=== PATIENT | male | born 1970 | race Caucasian/White ===

== ENCOUNTER 2017-07-25 19:09 | Emergency (ER) | payer MEDICAID ==
[~2017-07-25] VITALS: Ht 177.8 cm; Wt 86.0 kg
[~2017-07-25 19:09] MED LIST: AZIT500T5 PO; CEFD300C37 PO; GUAI12003 PO; NICO-486 TD; OXYC5TAB3 PO; POLY17PO5 PO
[2017-07-25 19:10] VITALS: BP 133/75
[2017-07-25] MEDS ORDERED: CARBAMIDE PEROXIDE EAR DROPS 6.5%, 15ML ONE (19:50)
[2017-07-25] MEDS ORDERED: CARBAMIDE PEROXIDE EAR DROPS 6.5%, 15ML LEFT EAR ONE (20:00)
[2017-07-25] MEDS ORDERED: CARBAMIDE PEROXIDE EAR DROPS 6.5%, 15ML RIGHT EAR ONE (20:00)
== END 2017-07-25 21:05 | disposition home or self-care (01) ==
LOC: ED 20:15
DX: H61.22 Impacted cerumen, left ear (principal)
CPT/HCPCS: 69209; 99282

== ENCOUNTER 2018-03-27 15:01 | Emergency (ER) | payer MEDICAID ==
[~2018-03-27] VITALS: Ht 175.3 cm; Wt 76.0 kg
[2018-03-27] MEDS ORDERED: ONDANSETRON ODT 4 MG ONE (15:29)
[2018-03-27] MEDS ORDERED: ONDANSETRON ODT 4 MG PO PRN (15:30)
[2018-03-27 15:35] LABS: BASOPHILS # (AUTO) 0.04 x10^3/uL (0-0.1); BASOPHILS % (AUTO) 1 % (0-1); EOSINOPHILS # (AUTO) 0.15 x10^3/uL (0-0.4); EOSINOPHILS % (AUTO) 2 % (1-7); LYMPHOCYTES # (AUTO) 2.79 x10^3/uL (1-3.4); LYMPHOCYTES % (AUTO) 39 % (22-44); MD NO; MEAN CORPUSCULAR HEMOGLOBIN 31.2 pg (27.5-34.5); MEAN CORPUSCULAR HGB CONC 33.1 g/dL (33.2-36.2); MEAN CORPUSCULAR VOLUME 94.2 fL (81-97); MONOCYTES % (AUTO) 13 % (2-9); NEUTROPHILS # (AUTO) 3.22 x10^3/uL (1.8-6.8); NEUTROPHILS % (AUTO) 45 % (42-75); PLATELET COUNT 316 x10^3/uL (130-400); RED BLOOD COUNT 4.39 x10^6/uL (4.38-5.82)
[2018-03-27 15:47] LABS: ALANINE AMINOTRANSFERASE 35 U/L (12-78); ALBUMIN 3.3 g/dL (3.4-5.0); ANION GAP 6 mmol/L (5-15); CALCIUM 7.8 mg/dL (8.5-10.1); CHLORIDE 108 mmol/L (98-107); CREATININE 1.11 mg/dL (0.7-1.3)
[2018-03-27 15:49] LABS: ALKALINE PHOSPHATASE 86 U/L (45-117); BILIRUBIN,TOTAL 0.3 mg/dL (0.2-1.0); TOTAL PROTEIN 6.8 g/dL (6.4-8.2)
[2018-03-27 17:27] VITALS: BP 125/74
== END 2018-03-27 17:30 | disposition home or self-care (01) ==
LOC: ED 15:26
DX: R11.2 Nausea with vomiting, unspecified (principal); R19.7 Diarrhea, unspecified; R10.9 Unspecified abdominal pain
CPT/HCPCS: 36415; 80053; 83690; 85025; 99284; Q0162

== ENCOUNTER 2018-05-09 19:48 | Emergency (ER) | payer MEDICAID ==
[~2018-05-09] VITALS: Ht 175.3 cm; Wt 78.3 kg
[2018-05-09 19:54] VITALS: BP 113/71
== END 2018-05-09 20:47 | disposition home or self-care (01) ==
LOC: ED 20:10
DX: L01.01 Non-bullous impetigo (principal); I10 Essential (primary) hypertension
CPT/HCPCS: 99283

== ENCOUNTER 2019-07-21 04:17 | Emergency (ER) | payer MEDICAID ==
[~2019-07-21] VITALS: Ht 175.3 cm; Wt 82.6 kg
[~2019-07-21 04:17] MED LIST changes: +AZIT500T10 PO; -AZIT500T5 PO
[2019-07-21] MEDS ORDERED: IBUPROFEN 800 MG TABLET ONE (04:40)
[2019-07-21 04:58] VITALS: BP 129/74
[2019-07-21] MEDS ORDERED: IBUPROFEN 800 MG TABLET PO ONE (05:00)
== END 2019-07-21 05:00 | disposition home or self-care (01) ==
LOC: ED 04:45
DX: K08.89 Other specified disorders of teeth and supporting structures (principal); I95.9 Hypotension, unspecified
CPT/HCPCS: 99283

== ENCOUNTER 2020-07-29 16:55 | Emergency (ER) | payer MEDICAID ==
[~2020-07-29] VITALS: Ht 175.3 cm; Wt 83.5 kg
[2020-07-29] MEDS ORDERED: KETOROLAC 30 MG/1 ML ONE (18:06)
[2020-07-29 18:26] VITALS: BP 140/72
[2020-07-29] MEDS ORDERED: KETOROLAC 30 MG/1 ML IM ONE (18:30)
== END 2020-07-29 18:27 | disposition home or self-care (01) ==
LOC: ED 17:59
DX: K02.9 Dental caries, unspecified (principal); K08.89 Other specified disorders of teeth and supporting structures
CPT/HCPCS: 96372; 99283; J1885

== ENCOUNTER 2020-08-22 01:21 | Emergency (ER) | payer MEDICAID ==
[~2020-08-22] VITALS: Ht 175.3 cm; Wt 83.7 kg
[~2020-08-22 01:21] MED LIST changes: -OXYC5TAB3 PO; +OXYC5TAB98 PO
[2020-08-22] MEDS ORDERED: HYDROcodone/APAP 5/325 TABLET PO ONE (02:00)
[2020-08-22] MEDS ORDERED: HYDROcodone/APAP 5/325 TABLET ONE (02:01)
[2020-08-22 02:12] LABS: BASOPHILS % (AUTO) 1 % (0-1); EOSINOPHILS % (AUTO) 2 % (1-7); LYMPHOCYTES % (AUTO) 13 % (22-44); MEAN CORPUSCULAR HEMOGLOBIN 31.5 pg (27.5-34.5); MEAN CORPUSCULAR HGB CONC 33.4 g/dL (33.2-36.2); MONOCYTES % (AUTO) 9 % (2-9); NEUTROPHILS % (AUTO) 75 % (42-75); PLATELET COUNT 390 x10^3/uL (130-400); RED BLOOD COUNT 4.53 x10^6/uL (4.38-5.82)
[2020-08-22 02:14] LABS: MD NO
[2020-08-22 02:20] LABS: ANION GAP 4 mmol/L (5-15); CALCIUM 9.4 mg/dL (8.5-10.1); CHLORIDE 105 mmol/L (98-107); CREATININE 1.21 mg/dL (0.7-1.3)
--- NOTE | 2020-08-22 03:01 | NUR ---
PT RESTING IN BED. PT HAS EQUAL AND UNLABORED BREATHING. PT ON MONITOR WITH PT VSS
--- NOTE | 2020-08-22 03:25 | NUR ---
BREAK RN: PT.CHART UP FOR RECHECK BY ERP AT THIS TIME.
[2020-08-22 04:01] VITALS: BP 112/68
== END 2020-08-22 04:08 | disposition home or self-care (01) ==
LOC: ED 01:51
DX: B37.9 Candidiasis, unspecified (principal); N49.2 Inflammatory disorders of scrotum; I95.9 Hypotension, unspecified; F17.210 Nicotine dependence, cigarettes, uncomplicated
CPT/HCPCS: 36415; 76870; 80048; 85025; 99284; 99406

== ENCOUNTER 2020-09-05 08:15 | Emergency (ER) | payer MEDICAID ==
[~2020-09-05] VITALS: Ht 175.3 cm; Wt 82.7 kg
--- NOTE | 2020-09-05 08:23 | NUR ---
[facility]
[2020-09-05] MEDS ORDERED: SODIUM CHLORIDE FLUSH 10ML SYR IVF ONE (08:30)
[2020-09-05] MEDS ORDERED: ONDANSETRON 2MG/ML, 2ML IVPush ONE (08:30)
[2020-09-05] MEDS ORDERED: MORPHINE SULFATE 4 MG/ML, 1ML IV PRN (08:30)
[2020-09-05] MEDS ORDERED: ONDANSETRON 2MG/ML, 2ML ONE (08:39)
[2020-09-05] MEDS ORDERED: MORPHINE SULFATE 4 MG/ML, 1ML ONE (08:40)
--- NOTE | 2020-09-05 08:46 | NUR ---
PT C/O RASH TO GROIN, HANDS, AND NECK FOR 3 WEEKS. PT STATES HE WAS SEEN IN THE ER AND WAS PRESCRIBED ABX WHICH HE COMPLETED. RASH HAS CONTINUED TO WORSEM. PT STATES RASH DOES ITCH.
--- NOTE | 2020-09-05 09:02 | NUR ---
TASK RN NOTE: PIV PLACED, PT MEDICATED PER EMAR. BP AND SPO2 MONITORS IN PLACE. CALL LIGHT IN REACH. PT A&O, RESPS EVEN AND UNLABORED. PT RATES PAIN AT 10/10 PRIOR TO MORPHINE ADMIN. BLOOD DRAWN WITH PIV START AND SENT TO LAB. AWAITNG US AND LAB RESULTS. PT INSTRUCTED TO PROVIDE CLEAN CATCH UA WHEN ABLE, SUPPLIES AT BEDSIDE. CALL LIGHT IN REACH.
[2020-09-05 09:03] LABS: BASOPHILS % (AUTO) 1 % (0-1); EOSINOPHILS % (AUTO) 7 % (1-7); LYMPHOCYTES % (AUTO) 20 % (22-44); MEAN CORPUSCULAR HEMOGLOBIN 30.9 pg (27.5-34.5); MEAN CORPUSCULAR HGB CONC 33.1 g/dL (33.2-36.2); MEAN PLATELET VOLUME 6.9 fL (7.4-10.4); MONOCYTES % (AUTO) 6 % (2-9); NEUTROPHILS % (AUTO) 67 % (42-75); PLATELET COUNT 388 x10^3/uL (130-400); RED BLOOD COUNT 4.28 x10^6/uL (4.38-5.82); RED CELL DISTRIBUTION WIDTH 13.7 % (9.4-14.8)
--- NOTE | 2020-09-05 09:13 | NUR ---
PT OFF THE FLOOR TO US
[2020-09-05 09:14] LABS: ALANINE AMINOTRANSFERASE 24 U/L (12-78); ALBUMIN 3.3 g/dL (3.4-5.0); ANION GAP 8 mmol/L (5-15); CALCIUM 8.6 mg/dL (8.5-10.1); CHLORIDE 110 mmol/L (98-107); CREATININE 1.07 mg/dL (0.7-1.3)
[2020-09-05 09:17] LABS: ALKALINE PHOSPHATASE 126 U/L (45-117); BILIRUBIN,TOTAL 0.2 mg/dL (0.2-1.0); TOTAL PROTEIN 6.7 g/dL (6.4-8.2)
[2020-09-05 09:22] LABS: MD SCAN
--- NOTE | 2020-09-05 09:44 | NUR ---
PT BACK IN ROOM FROM ULTRASOUND
[2020-09-05] MEDS ORDERED: OMNIPAQUE 350 MG/ML, 100ML BOTTLE ONE (09:52)
[2020-09-05] MEDS ORDERED: VANCOMYCIN PER PHARMACY MC ONE (10:00)
[2020-09-05] MEDS ORDERED: VANCOMYCIN 2,000 MG in SODIUM CHLORIDE 0.9% 500 ML IV ONE (10:30)
[2020-09-05] MEDS ORDERED: FLUCONAZOLE 100 MG TABLET PO ONE (11:00)
[2020-09-05] MEDS ORDERED: FLUCONAZOLE 100 MG TABLET ONE (11:16)
[2020-09-05 12:59] VITALS: BP 110/79
== END 2020-09-05 13:18 | disposition home or self-care (01) ==
LOC: ED 09:08
DX: N49.2 Inflammatory disorders of scrotum (principal); N50.819 Testicular pain, unspecified
CPT/HCPCS: 36415; 72193; 76870; 80053; 85025; 87806; 96365; 96366; 96375; 99285; J2270; J2405; J3370; J7040; J7512; Q9967; 96368; G0475

== ENCOUNTER 2020-10-24 15:43 | Emergency (ER) | payer MEDICAID ==
[~2020-10-24] VITALS: Ht 175.3 cm; Wt 84.2 kg
[2020-10-24 16:25] VITALS: BP 139/100
[2020-10-24] MEDS ORDERED: ACETAMINOPHEN 500 MG TABLET ONE (16:58)
[2020-10-24] MEDS ORDERED: ACETAMINOPHEN 500 MG TABLET PO ONE (17:00)
== END 2020-10-24 17:30 | disposition home or self-care (01) ==
LOC: ED 17:15
DX: K04.7 Periapical abscess without sinus (principal)
CPT/HCPCS: 99283

== ENCOUNTER 2021-01-07 15:54 | Inpatient (IN) | payer MEDICAID ==
[~2021-01-07] VITALS: Ht 175.3 cm; Wt 75.6 kg
--- NOTE | 2021-01-07 16:28 | NUR ---
UNABLE TO DOPPLAR PULSES, ERMD AWARE. PT REPORTS METH USE THIS AM.
[2021-01-07] MEDS ORDERED: HYDROmorphone 1 MG/ML, 1ML INJ ONE (16:37)
[2021-01-07] MEDS ORDERED: SODIUM CHLORIDE 0.9% 1,000 ML IV ONE (17:00)
[2021-01-07] MEDS ORDERED: SODIUM CHLORIDE FLUSH 10ML SYR IVF ONE (17:00)
[2021-01-07] MEDS ORDERED: HYDROmorphone 1 MG/ML, 1ML INJ IVPush PRN (17:00)
--- NOTE | 2021-01-07 17:09 | NUR ---
PT REPORTS "IM FEELING SO MUCH BETTER AFTER THAT MED"
[2021-01-07 17:15] LABS: BASOPHILS % (AUTO) 0 % (0-1); EOSINOPHILS % (AUTO) 0 % (1-7); LYMPHOCYTES % (AUTO) 14 % (22-44); MEAN CORPUSCULAR HEMOGLOBIN 31.5 pg (27.5-34.5); MEAN CORPUSCULAR HGB CONC 34.2 g/dL (33.2-36.2); MEAN PLATELET VOLUME 7.3 fL (7.4-10.4); MONOCYTES % (AUTO) 10 % (2-9); NEUTROPHILS % (AUTO) 76 % (42-75); PLATELET COUNT 299 x10^3/uL (130-400); RED CELL DISTRIBUTION WIDTH 13.5 % (9.4-14.8)
[2021-01-07 17:16] LABS: MD NO
[2021-01-07 17:17] LABS: ALANINE AMINOTRANSFERASE 26 U/L (12-78); ALBUMIN 3.8 g/dL (3.4-5.0); ANION GAP 10 mmol/L (5-15); CALCIUM 9.1 mg/dL (8.5-10.1); CHLORIDE 116 mmol/L (98-107); CREATININE 1.89 mg/dL (0.7-1.3)
[2021-01-07 17:19] LABS: ALKALINE PHOSPHATASE 107 U/L (45-117); BILIRUBIN,TOTAL 0.6 mg/dL (0.2-1.0); TOTAL PROTEIN 7.3 g/dL (6.4-8.2)
[2021-01-07 17:21] LABS: INTERNATIONAL NORMALIZED RATIO 1.07 (0.93-1.1); PROTHROMBIN TIME 11.4 Seconds (9.6-11.5)
--- NOTE | 2021-01-07 17:32 | NUR ---
ERMD AT BEDSIDE FOR EVAL
[2021-01-07 17:39] LABS: PARTIAL THROMBOPLASTIN TIME < 23 Seconds (25-31)
[2021-01-07] MEDS ORDERED: SODIUM CHLORIDE 0.9% 1,000ML IVBOLUS ONE (18:00)
--- NOTE | 2021-01-07 18:01 | NUR ---
REPORT TO RAY IN OR
[2021-01-07] MEDS ORDERED: HEPARIN 1,000 UNITS/ML, 10ML ONE (18:05)
[2021-01-07] MEDS ORDERED: FENTANYL PF 250 MCG/5ML ONE (18:19)
[2021-01-07] MEDS ORDERED: MIDAZOLAM 1 MG/ML, 2ML ONE (18:19)
[2021-01-07] MEDS ORDERED: PAPAVERINE 30 MG/ML, 2ML ONE (18:28)
[2021-01-07] MEDS ORDERED: OXYcodone IR 5MG TABLET PO PRN (19:00)
[2021-01-07] MEDS ORDERED: MELATONIN 5 MG TABLET PO PRN (19:00)
[2021-01-07] MEDS ORDERED: POLYETHYLENE GLYCOL 17 GM PACKET PO PRN (19:00)
[2021-01-07] MEDS ORDERED: ONDANSETRON 2MG/ML, 2ML IVPush PRN (19:00)
[2021-01-07] MEDS ORDERED: LORazepam 2 MG/ML, 1ML IVPush PRN (19:00)
[2021-01-07] MEDS ORDERED: TEMAZEPAM 15 MG CAPSULE PO PRN (19:00)
[2021-01-07] MEDS ORDERED: BISACODYL 10 MG SUPP PR PRN (19:00)
[2021-01-07] MEDS ORDERED: MORPHINE SULFATE 4 MG/ML, 1ML IVPush PRN (19:00)
[2021-01-07] MEDS ORDERED: hydrALAzine 20 MG/ML, 1ML IVPush PRN (19:00)
[2021-01-07] MEDS ORDERED: ACETAMINOPHEN 325 MG TABLET PO PRN ×2 (19:00→19:30)
[2021-01-07] MEDS ORDERED: DOCUSATE 100 MG CAPSULE PO PRN (19:00)
--- NOTE | 2021-01-07 19:06 | NUR ---
Report received from DUTCH Hancock. This RN to assume care.
[2021-01-07] MEDS ORDERED: OXYcodone 5 MG/5 ML ORAL.SOL UDC PO PRN (19:30)
[2021-01-07] MEDS ORDERED: ALBUTEROL SULFATE 2.5 MG/3 ML NPPB PRN (19:30)
[2021-01-07] MEDS ORDERED: FENTANYL PF 100 MCG/2ML IV PRN (19:30)
[2021-01-07] MEDS ORDERED: HYDROmorphone 2 MG/ML, 1ML IVPush PRN (19:30)
[2021-01-07] MEDS ORDERED: MEPERIDINE/PF 25MG/0.5ML IVPush PRN (19:30)
[2021-01-07] MEDS ORDERED: DIAZEPAM 5 MG/ML, 2ML IVPush PRN (19:30)
[2021-01-07] MEDS ORDERED: LABETALOL 5MG/ML, 20ML IV PRN (19:30)
[2021-01-07] MEDS ORDERED: hydrALAzine 20 MG/ML, 1ML IV PRN (19:30)
[2021-01-07] MEDS ORDERED: KETOROLAC 30 MG/1 ML IV PRN (19:30)
[2021-01-07] MEDS ORDERED: PROMETHAZINE 25 MG/ML, 1ML IV PRN (19:30)
[2021-01-07] MEDS ORDERED: VISIPAQUE 320MG/ML, 50ML BOTTLE ONE (19:37)
[2021-01-07] MEDS ORDERED: GLYCOPYRROLATE 0.2MG/1ML, 5ML ONE (20:23)
[2021-01-07] MEDS ORDERED: ONDANSETRON 2MG/ML, 2ML ONE (20:23)
[2021-01-07] MEDS ORDERED: CEFAZOLIN 1,000 MG ONE (20:23)
[2021-01-07] MEDS ORDERED: PROPOFOL 10 MG/ML, 20ML ONE (20:23)
[2021-01-07] MEDS ORDERED: DEXAMETHASONE 4 MG/ML, 1ML ONE (20:23)
[2021-01-07] MEDS ORDERED: NEOSTIGMINE 1 MG/ML, 10ML ONE (20:23)
[2021-01-07] MEDS ORDERED: ROCURONIUM 10MG/ML,5ML ONE (20:23)
[2021-01-07] MEDS ORDERED: SUCCINYLCHOLINE 20 MG/ML, 10ML ONE (20:23)
[2021-01-07 21:27] VITALS: BP 143/87
[2021-01-07] MEDS ORDERED: HEPARIN 5,000 UNITS/ML, 1ML IV PRN (22:30)
[2021-01-07] MEDS ORDERED: LORazepam 1MG TABLET PO PRN (22:30)
[2021-01-07] MEDS ORDERED: HEPARIN 5,000 UNITS/ML, 1ML IV ONE (22:30)
[2021-01-07] MEDS ORDERED: HEPARIN 25,000 UNITS/250ML PMX 250 ML IV PRN (22:30)
[2021-01-07] MEDS ORDERED: LORazepam 2 MG/ML, 1ML IV PRN (22:30)
[2021-01-07] MEDS ORDERED: morphine SULFATE 10 MG/ML, 1ML IV PRN (22:30)
[2021-01-07] MEDS ORDERED: OXYcodone/APAP 5/325MG TABLET PO PRN (22:30)
[2021-01-07] MEDS ORDERED: ONDANSETRON 2MG/ML, 2ML IV PRN (22:30)
[2021-01-07] MEDS: POTASSIUM CHLORIDE 20 MEQ in D5%-0.45% NACL 1,000 ML IV SCH (23:01)
[2021-01-07] MEDS: FAMOTIDINE 20 MG TABLET PO SCH (23:16)
[2021-01-08 01:20] VITALS: BP 127/73
[2021-01-08] MEDS: CEFAZOLIN PMX 1GM/50ML 50 ML IVPB SCH ×2 (03:27→12:14)
[2021-01-08] MEDS: POTASSIUM CHLORIDE 20 MEQ in D5%-0.45% NACL 1,000 ML IV SCH (04:50)
[2021-01-08 05:23] LABS: BASOPHILS % (AUTO) 0 % (0-1); EOSINOPHILS % (AUTO) 0 % (1-7); LYMPHOCYTES % (AUTO) 11 % (22-44); MEAN CORPUSCULAR HEMOGLOBIN 31.6 pg (27.5-34.5); MEAN CORPUSCULAR HGB CONC 33.8 g/dL (33.2-36.2); MEAN PLATELET VOLUME 7.3 fL (7.4-10.4); MONOCYTES % (AUTO) 6 % (2-9); NEUTROPHILS % (AUTO) 83 % (42-75); PLATELET COUNT 255 x10^3/uL (130-400); RED BLOOD COUNT 4.17 x10^6/uL (4.38-5.82); RED CELL DISTRIBUTION WIDTH 13.9 % (9.4-14.8)
[2021-01-08 05:33] LABS: LDL/HDL RATIO 3.7 (0.5-3.0)
[2021-01-08 05:34] LABS: MD NO
[2021-01-08 05:37] LABS: ANION GAP 5 mmol/L (5-15); CALCIUM 8.3 mg/dL (8.5-10.1); CHLORIDE 114 mmol/L (98-107); CREATININE 1.33 mg/dL (0.7-1.3)
[2021-01-08 06:56] VITALS: BP 110/64
[2021-01-08] MEDS: FAMOTIDINE 20 MG TABLET PO SCH ×2 (08:03→20:52)
[2021-01-08] MEDS: ASPIRIN 325 MG TABLET PO SCH (08:03)
[2021-01-08 13:49] VITALS: BP 120/71
[2021-01-08] MEDS ORDERED: RIVAROXABAN 15 MG TABLET PO SCH (17:00)
[2021-01-08 19:15] VITALS: BP 132/77
[2021-01-08] MEDS ORDERED: ATORVASTATIN 40 MG TABLET PO SCH (21:00)
[2021-01-09 01:38] LABS: MICROSCOPIC NOT IND
[2021-01-09 01:50] LABS: AMPHETAMINE SCREEN, URINE Positive (Negative); BARBITURATE SCREEN, URINE Negative (Negative); BENZODIAZEPINE SCREEN, URINE Positive (Negative); CANNABINOID SCREEN, URINE Negative (Negative); COCAINE SCREEN, URINE Negative (Negative); METHADONE SCREEN, URINE Negative (Negative); OPIATE SCREEN, URINE Negative (Negative)
[2021-01-09 02:03] VITALS: BP 130/80
[2021-01-09 05:34] LABS: ANION GAP 3 mmol/L (5-15); CALCIUM 8.2 mg/dL (8.5-10.1); CHLORIDE 110 mmol/L (98-107); CREATININE 0.96 mg/dL (0.7-1.3)
[2021-01-09] MEDS: ASPIRIN 325 MG TABLET PO SCH (06:03)
[2021-01-09 08:10] VITALS: BP 118/77
[2021-01-09] MEDS: FAMOTIDINE 20 MG TABLET PO SCH (08:36)
[2021-01-09] MEDS ORDERED: ATOR40TA78 PO (10:31)
[2021-01-09] MEDS ORDERED: RIVA15TA PO (10:31)
[2021-01-09] MEDS ORDERED: ASPI325T17 PO (10:31)
== END 2021-01-09 12:43 | disposition home or self-care (01) | DRG 300 ==
LOC: OR 18:31 → EDIP 18:55 → 5SO 21:29 → DCLOUNGE 01-09 12:05
PROVIDERS: ADMIT Internal Medicine; ATTEND Family Medicine
PROC: B41F1ZZ Fluoroscopy of Right Lower Extremity Arteries using Low Osmolar Contrast (ICD-10-PCS; 2021-01-07)
PROC: 04JY3ZZ Inspection of Lower Artery, Percutaneous Approach (ICD-10-PCS; principal; 2021-01-07 19:00)
DX: I70.221 Atherosclerosis of native arteries of extremities with rest pain, right leg (principal); N17.9 Acute kidney failure, unspecified; E86.0 Dehydration; Z20.822 Contact with and (suspected) exposure to COVID-19; F15.10 Other stimulant abuse, uncomplicated; F17.200 Nicotine dependence, unspecified, uncomplicated; J44.9 Chronic obstructive pulmonary disease, unspecified; Z59.0 Homelessness; Z86.711 Personal history of pulmonary embolism; Z86.73 Personal history of transient ischemic attack (TIA), and cerebral infarction without residual deficits; Z91.19 Patient's noncompliance with other medical treatment and regimen
CPT/HCPCS: 36415; 75710; 80048; 80053; 80061; 80307; 81003; 83605; 83735; 84100; 85025; 85520; 85610; 85730; 87635; 96361; 96374; C1729; G0378; J0690; J1100; J1170; J1644; J2250; J2405; J2704; J2710; J3010; J3480; Q9967; J0330; J2440; J7030